=== PATIENT | female | born 1990 | race Caucasian/White ===

== ENCOUNTER → 2024-06-17 | Emergency (ER) | payer MEDICAID ==
[~2024-06-17] VITALS: Ht 170.2 cm; Wt 110.7 kg
[~2024-06-17] MED LIST: METR500T PO; methergine PO
[2024-06-17 13:20] VITALS: BP 148/72; TEMP 98.1; O2SAT 97
== END | disposition home or self-care (01) ==
LOC: ER 13:14
DX: O20.9 Hemorrhage in early pregnancy, unspecified (principal); Z3A.00 Weeks of gestation of pregnancy not specified
CPT/HCPCS: 76856-TC